=== PATIENT | male | born 1960 | race Caucasian/White ===

== ENCOUNTER 2020-05-13 14:42 | Outpatient (CLI) | payer BC ==
--- NOTE | 2020-05-13 15:12 | RAD ---
EXAM: 3 views of the left knee HISTORY: Knee pain COMPARISON: None FINDINGS: No knee effusion is seen. There is no evidence of acute fracture or dislocation. No signifi cant degenerative changes are seen. No soft tissue swelling is present. IMPRESSION: No evidence of acute osseous abnormality.
== END 2020-05-13 14:43 | disposition home or self-care (01) ==
LOC: BICRAD 14:42
PROVIDERS: ATTEND Family Medicine
DX: M25.562 Pain in left knee (principal)
CPT/HCPCS: 36415; 84153

== ENCOUNTER 2021-06-01 11:46 | Outpatient (CLI) | payer BC | END 2021-06-01 11:47 | disposition home or self-care (01) | LOC: BICRAD 11:46 | PROVIDERS: ATTEND Nurse Practitioner Family | DX: M54.50 Low back pain, unspecified (principal); M47.816 Spondylosis without myelopathy or radiculopathy, lumbar region | CPT/HCPCS: 72100 ==

== ENCOUNTER 2023-03-29 10:59 | Outpatient (CLI) | payer BC | END 2023-03-29 11:00 | disposition home or self-care (01) | LOC: BICMRI 10:59 | PROVIDERS: ATTEND Orthopaedic Surgery | DX: M24.811 Other specific joint derangements of right shoulder, not elsewhere classified (principal); M19.011 Primary osteoarthritis, right shoulder; M25.811 Other specified joint disorders, right shoulder ==

== ENCOUNTER 2023-06-21 13:28 | Outpatient (CLI) | payer BC ==
[2023-06-21 16:50] LABS: Anion Gap 12 mmol/L (10-20); BUN (Urea Nitrogen) 13 mg/dL (8.4-25.7); Calc. Creatinine Clearance 0 mL/min (70-130); Calcium 8.6 mg/dL (7.8-10.44); Carbon Dioxide 24 mmol/L (23-31); Chloride 109 mmol/L (98-107); Estimated GFR 95; Glucose 91 mg/dL (80-115); Potassium 3.8 mmol/L (3.5-5.1); Sodium 141 mmol/L (136-145)
[2023-06-21 17:09] LABS: Prothrombin Time 10.9 sec (9.5-12.1)
[2023-06-21 17:23] LABS: #Basophils 0.1 10x3/uL (0.0-0.2); #Eosinphils 0.4 10x3/uL (0.0-0.5); #Monocytes 0.5 10x3/uL (0.0-1.1); #Neutrophils 2.1 10x3/uL (1.5-8.4); %Basophils 1.6 % (0.0-2.0); %Eosinophils 8.7 % (0.0-6.0); %Lymphocytes 28.9 % (18.0-47.0); %Monocytes 11.5 % (0.0-10.0); %Neutrophils 49.1 % (40.0-75.0); Hematocrit 36.2 % (38.8-50.0); Hemoglobin 10.6 g/dL (13.5-17.5); Mean Corpuscular HGB CONC 29.3 g/dL (32.0-36.0); Mean Corpuscular Hemoglobin 21.9 pg (27.0-33.0); Mean Corpuscular Volume 74.9 fl (81.2-95.1); Mean Platelet Volume 11.4 fl (7.4-10.4); Platelet Count 214 10x3/uL (150-450); RBC Distribution Width 18.2 % (11.5-14.5); Red Blood Cell (RBC) Count 4.83 10x6/uL (4.32-5.72); White Blood Cell (WBC) Count 4.3 10x3/uL (3.5-10.5)
== END 2023-06-21 13:29 | disposition home or self-care (01) ==
LOC: LABBT 13:28
PROVIDERS: ATTEND Orthopaedic Surgery
DX: Z01.818 Encounter for other preprocedural examination (principal); M25.511 Pain in right shoulder
CPT/HCPCS: 80048; 85025; 85610; 93005; 93010

== ENCOUNTER 2023-06-23 06:51 | Day surgery (SDC) | payer BC ==
[2023-06-21 13:50] VITALS: BMI 29.0
[2023-06-23] MEDS ORDERED: Midazolam HCl 2 mg/2 ml Vial ONE (07:35)
[2023-06-23] MEDS ORDERED: fentaNYL 50 mcg/mL 1 mL Vial ONE (07:35)
[2023-06-23] MEDS ORDERED: Ropivacaine 0.5% HCl/PF (150 MG/30 ML VIAL) ONE (07:36)
[2023-06-23] MEDS ORDERED: EPINEPHrine 1 MG/ML VIAL ONE (08:14)
[2023-06-23] MEDS ORDERED: Lidocaine 1% (PF) 30 ML VIAL ONE (08:14)
[2023-06-23] MEDS ORDERED: fentaNYL PF 100 MCG/2 ML SYRINGE ONE (08:59)
[2023-06-23] MEDS ORDERED: PROPOFOL 20 ML ONE (08:59)
[2023-06-23] MEDS ORDERED: CEFAZOLIN 2 GM VIAL ONE (09:19)
[2023-06-23] MEDS ORDERED: Sodium Chloride 0.9% 100 ML ONE (09:19)
[2023-06-23] MEDS ORDERED: fentaNYL 50 mcg/mL 1 mL Vial SLOW IVP PRN (09:55)
[2023-06-23] MEDS ORDERED: Lidocaine 1% PF 5 ML VIAL ONE (09:59)
[2023-06-23] MEDS ORDERED: Rocuronium Bromide 10 MG/ML (10ML VIAL) ONE (09:59)
[2023-06-23] MEDS ORDERED: Dexamethasone 20 MG/5 ML VIAL ONE (09:59)
[2023-06-23] MEDS ORDERED: Ondansetron PF 4 MG/2 ML Vial ONE (09:59)
[2023-06-23] MEDS ORDERED: PROPOFOL 200 MG/20 ML VIAL ONE (09:59)
[2023-06-23] MEDS ORDERED: Ketorolac Tromethamine 30 MG/ML VIAL ONE (09:59)
[2023-06-23] MEDS ORDERED: Ropivacaine 0.2% 550 ML 550 ML NERVE BLCK SCH (10:00)
[2023-06-23] MEDS ORDERED: Zolpidem Tartrate 5 MG TAB PO PRN (10:00)
[2023-06-23] MEDS ORDERED: Promethazine HCl 25 MG/ML VIAL IM PRN (10:00)
[2023-06-23] MEDS ORDERED: traMADol HCl 50 MG TAB PO PRN ×2 (10:00)
[2023-06-23] MEDS ORDERED: Ondansetron PF 4 MG/2 ML Vial IVP PRN (10:00)
[2023-06-23] MEDS ORDERED: HYDROcodone/Acetaminophen 10/325 mg Tablet PO PRN ×2 (10:00)
[2023-06-23] MEDS ORDERED: Ketorolac Tromethamine 30 MG/ML VIAL IVP SCH (12:00)
[2023-06-23] MEDS ORDERED: Acetaminophen 500 MG TAB ONE (13:47)
== END 2023-06-23 14:45 | disposition home or self-care (01) ==
LOC: SDC 06:51
PROVIDERS: ATTEND Orthopaedic Surgery
PROC: 0JBD0ZZ Excision of Right Upper Arm Subcutaneous Tissue and Fascia, Open Approach (ICD-10-PCS; principal; 2023-06-23)
DX: M19.011 Primary osteoarthritis, right shoulder (principal); M75.51 Bursitis of right shoulder; G89.29 Other chronic pain; F10.90 Alcohol use, unspecified, uncomplicated; Z79.899 Other long term (current) drug therapy
CPT/HCPCS: A4306; J0171; J1100; J1885; J2001; J2250; J2405; J2704; J2795; J3010; J3490